=== PATIENT | female | born 1970 | race African-American/Black ===

== ENCOUNTER → 2017-02-14 | Outpatient (CLI) | payer OTHER | LOC: BMCIMAGING 09:17 | PROVIDERS: ATTEND Registered Nurse General Practice | DX: Z12.31 Encounter for screening mammogram for malignant neoplasm of breast (principal) | CPT/HCPCS: G0202 ==

== ENCOUNTER → 2017-02-28 | Outpatient (CLI) | payer OTHER | LOC: BMCIMAGING 11:15 | PROVIDERS: ATTEND Registered Nurse General Practice | DX: R92.8 Other abnormal and inconclusive findings on diagnostic imaging of breast (principal); Z80.3 Family history of malignant neoplasm of breast | CPT/HCPCS: G0206 ==

== ENCOUNTER → 2018-07-10 | Outpatient (CLI) | payer OTHER | LOC: FIMAGING 08:46 | PROVIDERS: ATTEND Family Medicine | DX: R92.8 Other abnormal and inconclusive findings on diagnostic imaging of breast (principal) ==